=== PATIENT | female | born 1940 | race Two or more races ===

== ENCOUNTER → 2022-02-20 08:00 | Outpatient (CLI) | payer OTHER ==
[~2022-02-20] VITALS: Ht 129.5 cm; Wt 37.2 kg
== END | disposition home or self-care (01) ==
LOC: LAB 08:00 → SURG 02-21 07:15 → EDSTATUS 03-07 07:15 → SURG 03-07 07:15
PROVIDERS: ATTEND Specialist
DX: C51.9 Malignant neoplasm of vulva, unspecified (principal)

== ENCOUNTER 2022-08-02 19:58 | Emergency (ER) | payer OTHER ==
[~2022-08-02] VITALS: Ht 147.3 cm; Wt 37.6 kg
[2022-08-02] MEDS ORDERED: DICLOFENAC SODI75 MG PO (22:40)
[2022-08-02] MEDS ORDERED: MIRALAX510 GM PO (22:45)
== END 2022-08-02 22:51 | disposition home or self-care (01) ==
LOC: ER 19:58
DX: M54.50 Low back pain, unspecified (principal); Z91.018 Allergy to other foods; M85.88 Other specified disorders of bone density and structure, other site